=== PATIENT | female | born 1970 | race Hispanic/Latino ===

== ENCOUNTER 2017-08-15 19:50 | Emergency (ER) | payer BC ==
[~2017-08-15] VITALS: Ht 152.4 cm; Wt 64.9 kg
[2017-08-15] MEDS ORDERED: DIATRIZOATE MEGL/DIATRIZOA SOD 30 ML BTL PO ONE (20:17)
[2017-08-15 20:41] LABS: BASOPHILS % 0.5 % (0.0-1.0); EOSINOPHILS # (AUTO) 0.1 (0.0-0.4); EOSINOPHILS % 1.5 % (0.0-6.0); HEMATOCRIT 39.4 % (34.2-44.1); HEMOGLOBIN 13.8 g/dL (12.0-16.0); LYMPHOCYTES # (AUTO) 1.8 (1.0-3.2); LYMPHOCYTES % 42.6 % (18.0-39.1); MEAN CORPUSCULAR HEMOGLOBIN 29.5 pg (28-32); MEAN CORPUSCULAR VOLUME 84.2 fL (81-99); MONOCYTES # (AUTO) 0.3 (0.2-0.8); NEUTROPHILS % 47.2 % (38.7-80.0); PLATELET COUNT 174 x10e3/uL (140-360); RED BLOOD COUNT 4.68 x10e6/uL (3.6-5.1); RED CELL DISTRIBUTION WIDTH 12.8 % (11.7-14.4)
[2017-08-15 20:42] LABS: BILIRUBIN,URINE NEGATIVE (NEGATIVE); CLARITY,URINE CLEAR (CLEAR); COLOR,URINE YELLOW (YELLOW); KETONES,URINE NEGATIVE (NEGATIVE); LEUKOCYTE ESTERASE ,URINE NEGATIVE (NEGATIVE); NITRITE,URINE NEGATIVE (NEGATIVE); PROTEIN,URINE DIPSTICK NEGATIVE (NEGATIVE); URINE UROBILINOGEN 0.2 mg/dL (0.2 - 1)
[2017-08-15 20:55] LABS: ALANINE AMINOTRANSFERASE 21 IU/L (0-55); ALBUMIN 4.3 g/dL (3.5-5.0); ALBUMIN/GLOBULIN RATIO 1.5 (0.8-2.0); ALKALINE PHOSPHATASE 79 IU/L (40-150); ANION GAP 12.3 mmol/L (8-16); BLOOD UREA NITROGEN 15 mg/dL (7-26); BUN/CREATININE RATIO 21 (6-25); CALCIUM 9.7 mg/dL (8.4-10.2); CARBON DIOXIDE 31 mmol/L (22-29); CHLORIDE 100 mmol/L (98-107); CREATININE, SERUM 0.73 mg/dL (0.57-1.11); EST GLOMERULAR FILTRATION RATE > 60 ML/MIN (60-); GLUCOSE 104 mg/dL (74-118); POTASSIUM 4.3 mmol/L (3.5-5.1); SODIUM 139 mmol/L (136-145)
[2017-08-15 20:57] LABS: EPITHELIAL CELLS,URINE FEW /LPF
[2017-08-15 20:58] LABS: TRANSITIONAL EPI CELLS,URINE FEW; WBC,URINE (MAN) 0-5 /HPF (0-5)
--- NOTE | 2017-08-15 22:07 | Diagnostic Imaging Report ---
EXAM: CT ABDOMEN/PELVIS W DATE: 08/15/2017 7:59 PM INDICATION: Abdominal pain COMPARISON: 07/24/2013 TECHNIQUE: The abdomen and pelvis were scanned using a multidetector helical scanner. Coronal and sagittal reformations were obtained. Routine protocol performed. IV Contrast: 100 ml Isovue 370 FINDINGS: LOWER THORAX: No consolidations LIVER/BILIARY: Hepatic steatosis. No masses. No ductal dilatation. GALLBLADDER: Unremarkable SPLEEN: Unremarkable PANCREAS: Unremarkable ADRENALS: No nodules KIDNEYS: Symmetric perfusion. No enhancing masses. No hydronephrosis. GI TRACT: Status post prior sigmoid resection. Moderate stool burden. Diverticulosis is present. No evidence of obstruction. Normal appendix. VESSELS: Mild atherosclerotic changes PERITONEUM/RETROPERITONEUM: No free air or fluid LYMPH NODES: No lymphadenopathy REPRODUCTIVE ORGANS/BLADDER: Uterus is absent. Bladder is partially decompressed. SOFT TISSUES: Postsurgical changes along the anterior abdominal wall. Diastases with without etelvina herniation. BONES: No suspicious bone lesions. IMPRESSION: 1. Moderate stool burden. Otherwise no acute abnormality. 2. Diverticulosis without evidence of diverticulitis. 3. Hepatic steatosis. Signed by: Dr Stefanie Woodson MD on 08/15/2017 10:04 PM
[2017-08-15 22:16] VITALS: BP 112/77
[2017-08-15] MEDS ORDERED: SODIUM CHLORIDE 0.9% 50ML 50 ML ONE (22:40)
[2017-08-15] MEDS ORDERED: IOPAMIDOL 370 MG/ML 200 ML INFUS..BTL INJ ONE (22:40)
== END 2017-08-15 22:20 | disposition home or self-care (01) ==
LOC: ER 19:50
DX: R10.31 Right lower quadrant pain (principal); R10.32 Left lower quadrant pain; K59.00 Constipation, unspecified; Z85.3 Personal history of malignant neoplasm of breast
CPT/HCPCS: 36415; 74177; 80053; 81001; 85025; 99284; Q9967

== ENCOUNTER 2022-04-01 10:34 | Emergency (ER) | payer BC ==
[~2022-04-01] VITALS: Ht 152.4 cm; Wt 64.9 kg
[2022-04-01] MEDS ORDERED: Morphine 4mg INJECTION 4 MG/ML INJ IV ONE (11:00)
[2022-04-01] MEDS ORDERED: KETOROLAC TROMETHAMINE 30 MG/ML VIAL IV ONE (11:00)
[2022-04-01] MEDS ORDERED: SODIUM CHLORIDE FLUSH 10 ML SYR IV PRN (11:00)
[2022-04-01] MEDS ORDERED: ONDANSETRON HCL INJ 2MG/ML 2ML 2 MG/ML VIAL IV ONE (11:00)
[2022-04-01 11:16] LABS: BASOPHILS % 0.2 % (0.0-1.0); EOSINOPHILS # (AUTO) 0.1 (0.0-0.4); EOSINOPHILS % 0.5 % (0.0-6.0); HEMATOCRIT 45.5 % (34.2-44.1); HEMOGLOBIN 14.9 g/dL (12.0-16.0); LYMPHOCYTES # (AUTO) 1.3 (1.0-3.2); LYMPHOCYTES % 14.1 % (18.0-39.1); MEAN CORPUSCULAR HEMOGLOBIN 29.4 pg (28-32); MEAN CORPUSCULAR HGB CONC 32.7 g/dL (31-35); MEAN CORPUSCULAR VOLUME 89.9 fL (81-99); MONOCYTES # (AUTO) 0.5 (0.2-0.8); NEUTROPHILS # (AUTO) 7.3 (2.1-6.9); NEUTROPHILS % 79.9 % (38.7-80.0); PLATELET COUNT 182 x10e3/uL (140-360); RED BLOOD COUNT 5.06 x10e6/uL (3.6-5.1); RED CELL DISTRIBUTION WIDTH 12.5 % (11.7-14.4)
[2022-04-01 11:27] LABS: ALBUMIN 4.6 g/dL (3.5-5.0); ALBUMIN/GLOBULIN RATIO 1.2 (0.8-2.0); ANION GAP 16.8 mmol/L (8-16); CALCIUM 9.7 mg/dL (8.4-10.2); CREATININE, SERUM 0.74 mg/dL (0.57-1.11); POTASSIUM 3.8 mmol/L (3.5-5.1)
[2022-04-01 11:44] LABS: CLARITY,URINE CLEAR (CLEAR); COLOR,URINE YELLOW (YELLOW); LEUKOCYTE ESTERASE ,URINE NEGATIVE (NEGATIVE); NITRITE,URINE NEGATIVE (NEGATIVE); PROTEIN,URINE DIPSTICK NEGATIVE (NEGATIVE)
[2022-04-01 11:45] LABS: KETONES,URINE NEGATIVE (NEGATIVE); URINE UROBILINOGEN 0.2 mg/dL (0.2 - 1)
[2022-04-01 11:54] LABS: WBC,URINE (MAN) 0-5 /HPF (0-5)
[2022-04-01 11:55] LABS: BACTERIA,URINE FEW /HPF; EPITHELIAL CELLS,URINE MODERATE /LPF
[2022-04-01] MEDS ORDERED: IOPAMIDOL 370 MG/ML 100 ML INFUS..BTL INJ ONE (12:18)
[2022-04-01] MEDS ORDERED: CIPRO500 MG PO (12:54)
[2022-04-01] MEDS ORDERED: METRONIDAZOLE500 MG PO (12:54)
[2022-04-01] MEDS ORDERED: ONDANSETRON ODT4 MG PO (12:55)
== END 2022-04-01 13:13 | disposition home or self-care (01) ==
LOC: ER 10:36
DX: R50.9 Fever, unspecified (principal); K57.32 Diverticulitis of large intestine without perforation or abscess without bleeding; R10.32 Left lower quadrant pain; Z85.3 Personal history of malignant neoplasm of breast
CPT/HCPCS: 36415; 74177; 80053; 81001; 85025; 99284; J1885; J2270; J2405; Q9967

== ENCOUNTER → 2022-12-07 | Day surgery (SDC) | payer BC ==
[~2022-12-07] MED LIST: CIPRO500 MG PO; LACTATED RINGER'S 1,000 ML ONE; LIDOCAINE HCL 2% LOCAL INJ 5 ML SDV VIAL INJ ONE; METRONIDAZOLE500 MG PO; OMEPRAZOLE40 MG PO; ONDANSETRON ODT4 MG PO; PROPOFOL IV EMULSION 10 MG/ML 20 ML VIAL ONE; VITAMIN D3 COM1 EACH PO
[2022-12-07 07:46] VITALS: TEMP 97.6
[2022-12-07 08:00] VITALS: BP 161/98; PULSE 84; RESP 16; O2SAT 98
== END | disposition home or self-care (01) ==
LOC: OR 05:47
PROVIDERS: ATTEND Internal Medicine Gastroenterology
DX: K29.50 Unspecified chronic gastritis without bleeding (principal); K21.9 Gastro-esophageal reflux disease without esophagitis; Z01.810 Encounter for preprocedural cardiovascular examination; Z85.3 Personal history of malignant neoplasm of breast
CPT/HCPCS: 43239; 88305; 88342; 93005; J2001; J2704; J7121; 88304; 88312

== ENCOUNTER 2023-12-18 21:23 | Emergency (ER) | payer BC ==
[~2023-12-18] VITALS: Ht 152.4 cm; Wt 66.2 kg
[~2023-12-18 21:23] MED LIST changes: -LACTATED RINGER'S 1,000 ML ONE; -LIDOCAINE HCL 2% LOCAL INJ 5 ML SDV VIAL INJ ONE; +PEPCID20 MG PO; +PREDNISONE20 MG PO; -PROPOFOL IV EMULSION 10 MG/ML 20 ML VIAL ONE; +VENTOLIN HFA18 GM INH
[2023-12-18 21:24] VITALS: PULSE 97; RESP 20; TEMP 98.7
[2023-12-18] MEDS: KETOROLAC TROMETHAMINE 30 MG/ML VIAL IV STA (21:50)
[2023-12-18 22:14] LABS: BASOPHILS % 0.3 % (0.0-1.0); EOSINOPHILS % 0.1 % (0.0-6.0); HEMATOCRIT 42.3 % (34.2-44.1); HEMOGLOBIN 14.4 g/dL (12.0-16.0); LYMPHOCYTES # (AUTO) 1.9 (1.0-3.2); LYMPHOCYTES % 21.1 % (18.0-39.1); MEAN CORPUSCULAR HEMOGLOBIN 29.4 pg (28-32); MEAN CORPUSCULAR VOLUME 86.3 fL (81-99); MONOCYTES # (AUTO) 0.6 (0.2-0.8); MONOCYTES % 6.4 % (4.4-11.3); NEUTROPHILS # (AUTO) 6.5 (2.1-6.9); NEUTROPHILS % 71.2 % (38.7-80.0); PLATELET COUNT 215 x10e3/uL (140-360); RED CELL DISTRIBUTION WIDTH 12.8 % (11.7-14.4); WHITE BLOOD COUNT 9.12 x10e3/uL (4.8-10.8)
[2023-12-18 22:28] LABS: ALBUMIN 4.6 g/dL (3.5-5.0); ALBUMIN/GLOBULIN RATIO 1.5 (0.8-2.0); ANION GAP 15.9 mmol/L (8-16); BILIRUBIN,TOTAL 0.3 mg/dL (0.2-1.2); CALCIUM 9.9 mg/dL (8.4-10.2); CREATININE, SERUM 0.86 mg/dL (0.57-1.11); POTASSIUM 3.9 mmol/L (3.5-5.1); TOTAL PROTEIN 7.7 g/dL (6.5-8.1)
[2023-12-18] MEDS ORDERED: METFORMIN HCL500 MG PO (23:18)
[2023-12-18 23:22] VITALS: BP 149/79; PULSE 82; RESP 15; TEMP 98; O2SAT 97
== END 2023-12-18 23:30 | disposition home or self-care (01) ==
LOC: ER 21:28
DX: R07.89 Other chest pain (principal); R73.9 Hyperglycemia, unspecified
CPT/HCPCS: 36415; 71045; 80053; 84484; 85025; 93005; 99284; J1885